=== PATIENT | female | born 1970 | race African-American/Black ===

== ENCOUNTER 2017-08-07 04:42 | Emergency (ER) | payer MEDICAID ==
[~2017-08-07] VITALS: Ht 160 cm; Wt 61.2 kg
[2017-08-07 04:52] VITALS: BP 126/87
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
[2017-08-07 05:19] VITALS: BP 126/87
== END 2017-08-07 05:20 | disposition home or self-care (01) ==
LOC: EDBD 04:42 → EMR 05:08
DX: F22 Delusional disorders (principal)
CPT/HCPCS: 99282